=== PATIENT | male | born 1945 | race Two or more races ===

== ENCOUNTER 2017-06-11 14:35 | Emergency (ER) | payer MEDICARE ==
[~2017-06-11] VITALS: Ht 167.6 cm; Wt 64.0 kg
[~2017-06-11 14:35] MED LIST: ATEN50TA PO; LOSA1TAB34 PO
[2017-06-11 16:44] VITALS: BP 132/80
== END 2017-06-11 16:45 | disposition home or self-care (01) ==
LOC: ER 16:08
DX: I10 Essential (primary) hypertension (principal); Z76.0 Encounter for issue of repeat prescription
CPT/HCPCS: 99283